=== PATIENT | female | born 1985 | race Hispanic/Latino ===

== ENCOUNTER 2017-10-24 10:19 | Observation (INO) | payer BC ==
[2017-10-24] VITALS (9 sets, daily range): BP systolic 100–109; BP diastolic 57–63
[~2017-10-24] VITALS: Ht 152.4 cm; Wt 59.4 kg
[2017-10-24 11:17] LABS: MEAN CORPUSCULAR HEMOGLOBIN 20.3 pg (27.0-33.0); MEAN CORPUSCULAR HGB CONC 31.2 g/dL (32.0-36.0); MEAN CORPUSCULAR VOLUME 65.2 fL (79-99); NUCLEATED RED BLOOD CELLS 0.1 % (0.0-0.19); PLATELET COUNT (AUTO) 274 K/uL (130-400); RED BLOOD CELL COUNT(AUTO) 2.97 MIL/uL (4.00-5.50); RED CELL DISTRIBUTION WIDTH 18.3 % (11.0-15.5); WHITE BLOOD COUNT (AUTO) 6.8 K/uL (4.8-10.8)
[2017-10-24 11:26] LABS: HEMATOCRIT 19.4 % (36-48)
[2017-10-24 17:11] LABS: HEMATOCRIT 26.5 % (36-48)
[2017-10-28] MEDS ORDERED: FERR-82 PO (14:39)
== END 2017-10-24 18:20 | disposition home or self-care (01) ==
LOC: LDH 10:33
PROVIDERS: ADMIT Obstetrics & Gynecology; ATTEND Obstetrics & Gynecology
DX: N93.9 Abnormal uterine and vaginal bleeding, unspecified (principal); D50.0 Iron deficiency anemia secondary to blood loss (chronic); N83.299 Other ovarian cyst, unspecified side; Z86.32 Personal history of gestational diabetes; Z82.49 Family history of ischemic heart disease and other diseases of the circulatory system
CPT/HCPCS: 36415; 36430; 85027; 86850; 86900; 86901; 86922; 88313; G0378 ×9; J7030; P9016 ×2; 96360; 96361